=== PATIENT | male | born 1975 | race American Indian/Alaskan Native ===

== ENCOUNTER 2021-01-28 13:49 | Emergency (ER) | payer MEDICAID ==
--- NOTE | 2021-01-28 15:17 | Emergency Department Report ---
- General Chief Complaint: Upper Respiratory Infection Stated Complaint: FREDERICK, FEVER Time Seen by Provider: 01/28/21 15:16 Source: patient Mode of arrival: Ambulatory Limitations: No Limitations - History of Present Illness Initial Comments: 45-year-old male who denies any significant past medical history presents to the ER today complaint of URI/flulike symptoms. Patient states that his symptoms started 2 days ago. He reports objective fever, intermittent mild dry cough, sore throat, and states that his taste is "off". He states that his smell is normal. He states that his daughter was recently diagnosed with COVID-19. He has not gotten a COVID-19 test since he has been sick. He has not gotten the vaccine. He has not gotten a flu vaccine. He reports no additional symptoms at this time. Complaint: fever, cough, other (Sorethroat) -: days(s) (2) - Related Data Allergies Allergy/AdvReac Type Severity Reaction Status Date / Time No Known Allergies Allergy Unverified 01/28/21 15:08 ED Review of Systems ROS: Stated complaint: FREDERICK, FEVER Other details as noted in HPI Comment: All other systems reviewed and negative Constitutional: chills, fever ENT: throat pain Respiratory: cough Cardiovascular: denies: chest pain, palpitations Gastrointestinal: denies: abdominal pain, nausea, diarrhea Musculoskeletal: myalgia Neurological: headache. denies: numbness, paresthesias, confusion, abnormal gait, vertigo Psychiatric: denies: anxiety, depression, homicidal thoughts, suicidal thoughts Hematological/Lymphatic: denies: easy bleeding, easy bruising, swollen glands ED Physical Exam - General Limitations: No Limitations General appearance: alert, in no apparent distress - Head Head exam: Present: atraumatic, normocephalic, normal inspection - Eye Eye exam: Present: normal appearance, PERRL, EOMI Pupils: Present: normal accommodation - ENT ENT exam: Present: mucous membranes moist, TM's normal bilaterally - Expanded ENT Exam Expanded Mouth exam: Present: normal external inspection Teeth exam: Present: normal inspection Throat exam: Positive: tonsillar erythema. Negative: tonsillomegaly, tonsillar exudate, R peritonsillar mass, L peritonsillar mass - Neck Neck exam: Present: normal inspection, full ROM. Absent: meningismus - Respiratory Respiratory exam: Present: normal lung sounds bilaterally. Absent: respiratory distress, wheezes, rales, rhonchi - Cardiovascular Cardiovascular Exam: Present: regular rate, normal rhythm, normal heart sounds - GI/Abdominal GI/Abdominal exam: Present: soft. Absent: distended, tenderness, guarding, rebound - Neurological Exam Neurological exam: Present: alert, oriented X3, CN II-XII intact, normal gait - Psychiatric Psychiatric exam: Present: normal affect, normal mood - Skin Skin exam: Present: intact ED Course Vital Signs 01/28/21 15:06 Temperature 100 F H Pulse Rate 85 Respiratory 16 Rate Blood Pressure 119/95 [Left] O2 Sat by Pulse 98 Oximetry ED Medical Decision Making - Medical Decision Making Rapid strep and rapid flu negative. The patient is resting comfortably, is alert and in no distress. The patient has normal mental status and is neurologically intact. The patient appears well and there is no significant dehydration. There is no respiratory distress and no signs of systemic toxicity. The history, exam, diagnostic testing and current condition do not demonstrate an infectious process such as meningitis, severe pneumonia, retropharyngeal abscess, epiglottitis, acute respiratory distress syndrome with hypoxia, sepsis or other serious/bacterial infection requiring further testing, treatment, consultation or admission at this time. Discussed results with vanita verma. Symptoms likely related to nonspecific viral illness, but since he was exposed to Covid recommend that he get a COVID-19 test at any local urgent care pharmacies. At this time his treatment will be geared mainly towards his symptoms. Encouraged that he drinks lots of fluids. Recommend follow-up with his PCP. The vital signs have been stable. The patient's condition is stable and appropriate for discharge. The patient will pursue further outpatient evaluation with the primary care physician. Critical care attestation.: If time is entered above; I have spent that time in minutes in the direct care of this critically ill patient, excluding procedure time. ED Disposition Clinical Impression: Viral illness, Exposure to COVID-19 virus Disposition: HOME / SELF CARE / HOMELESS Is pt being admited?: No Does the pt Need Aspirin: No Condition: Stable Instructions: Viral Illness, Adult Additional Instructions: I recommend that you follow-up with local urgent care or pharmacy to get an outpatient COVID-19 test since you were exposed to someone with Covid and your symptoms could be related to Covid. In the meantime you can take Tylenol as needed for pain and fever. You can alternate with ibuprofen. Drink lots of fluids. Take a multivitamin containing vitamin C, D and zinc. I recommend that you quarantine until you get the results of your test. Follow-up closely with your PCP. Return to the ER if your symptoms worsens in any way. Referrals: PRIMARY CARE, [Primary Care Provider] - 3-5 Days Time of Disposition: 16:09
[2021-01-28] MEDS ORDERED: IBUPROFEN 600 MG TAB PO ONE (15:35)
[2021-01-28 16:56] VITALS: BP 140/92
== END 2021-01-28 16:57 | disposition home or self-care (01) ==
LOC: EDBD → ED 13:49
DX: B34.9 Viral infection, unspecified (principal); Z20.822 Contact with and (suspected) exposure to COVID-19
CPT/HCPCS: 87116; 87400; 87430; 99283